=== PATIENT | male | born 1950 | race Caucasian/White ===

== ENCOUNTER 2016-04-03 09:50 | Emergency (ER) ==
[2016-04-03] MEDS ORDERED: NITROSTAT SL STA ×2 (09:57→10:08)
[2016-04-03] MEDS ORDERED: SODIUM CHLORIDE 1,000 ML IV STA (09:57)
[2016-04-03] MEDS ORDERED: ASPIRIN CHEWABLE PO STA (09:57)
[2016-04-03 10:02] VITALS: BP 169/113; TEMP 97.1; BMI 34.0
--- NOTE | 2016-04-03 10:04 | ED.PDOC ---
General ED Provider: Dr. REGI AMADOR-ER Chief Complaint: Chest Pain Stated Complaint: im hurting Time Seen by Physician: 09:55 Mode of Arrival: Wheelchair Information Source: Patient, Family Exam Limitations: No limitations Nursing and Triage Documentation Reviewed and Agree: Yes Cardiovascular Complaint Exam - Chest Pain Complaint/Exam Onset: Sudden Duration: 2hrs Symptoms Are: Still present Timing: Constant Initial Severity: Moderate Current Severity: Moderate Location: Reports: Discrete Pain Radiates: Reports: None Aggravating: Reports: None Alleviating: Reports: Oxygen Associated Signs and Symptoms: Denies: Diaphoresis, Nausea, Vomiting, Fever, Palpitations, Cough, Hemoptysis, Back pain, Abdominal pain, Dizziness, Short of air, Calf pain, Calf swelling Related Surgical History: Reports: None History of Healthcare-Acquired Pneumonia: Reports: No TAD Risk Factors: Reports: None Pulmonary Embolism Risk Factors: Reports: None Prior Care for this Complaint: No Recent Stress Test: No Recent Echo/LV Function: No JVD Present: No Subcutaneous Emphysema Present: No Diminshed Breath Sounds: No Reproducible Chest Wall Pain: No Bilateral Pulses Present: Yes Unequal Pulses Noted: No Differential Diagnoses: Acute OR Quality Indicators For Acute OR or Cardiac Chest Pain: EKG in 10min. Quality Indicator For Non-Traumatic Chest Pain/Syncope: EKG Performed Review of Systems - Review Of Systems Constitutional: Reports: No symptoms Eyes: Reports: No symptoms Ears, Nose, Mouth, Throat: Reports: No symptoms Respiratory: Reports: No symptoms Cardiac: Reports: Chest pain GI: Reports: No symptoms : Reports: No symptoms Musculoskeletal: Reports: No symptoms Skin: Reports: No symptoms Neurological: Reports: No symptoms Endocrine: Reports: No symptoms Hematologic/Lymphatic: Reports: No symptoms All Other Systems: Reviewed and Negative Past Medical History - Past Medical History Endocrine: Reports: Unknown Cardiovascular: Reports: Unknown Respiratory: Reports: Unknown Hematological: Reports: Unknown Gastrointestinal: Reports: Unknown Genitourinary: Reports: Unknown Neuro/Psych: Reports: Unknown Musculoskeletal: Reports: Unknown Cancer: Reports: Unknown - Surgical History General Surgical History: Reports: Unknown - Family History Family History: Reports: Unknown - Social History Smoking Status: Current every day smoker, Heavy tobacco smoker Hx Substance Use: No Alcohol Screening: None Lives: With family Physical Exam - Physical Exam Appearance: Well-appearing, No pain distress, Well-nourished Pain Distress: Moderate Eyes: TATYANA, EOMI, Conjunctiva clear ENT: Ears normal, Nose normal, Oropharynx normal Neck: Supple Respiratory: Airway patent, Breath sounds clear, Breath sounds equal, Respirations nonlabored Cardiovascular: RRR, Pulses normal, No rub, No murmur GI/: Soft, Nontender, No masses, Bowel sounds normal, No Organomegaly Musculoskeletal: Normal strength, ROM intact, No edema, No calf tenderness Skin: Warm Neurological: Sensation intact, Motor intact, Reflexes intact, Cranial nerves intact, Alert, Oriented Psychiatric: Affect appropriate, Mood appropriate Interpretation - EKG Interpretation Time of EKG #1: 10:04 Rate: Normal Rhythm: Sinus [place]: NL ST Segment: Other (st seg elevations) Re-Evaluation - Re-Evaluation Time of Re-Evaluation: 10:04 Status: Improved Vital Signs Stable: Yes Pain Level: 1 Appearance: NAD Lungs: Clear Skin: Warm and Dry Neuro: Alert and Oriented X3 CV: RRR Physician Notification - Case Discussed Physician Notified: dr beatty psychiatricosiel er Time of Notification: 10:04 Critical Care Note - Critical Care Note Total Time (mins): 15 Course - Course Orders, Labs, Meds: Orders Category Date Time Status EKG-(ED ONLY) Stat CARDIO 04/03/16 09:57 Ordered TRANSFER TO OUTSIDE FACILITY .TO [facility] 04/03/16 10:05 Ordered ([place], [place]) WRITE TRANSFER/SBAR NOTE ONCE CARE 04/03/16 10:05 Ordered DISCHARGE ASSESSMENT ONCE DISCHARGE 04/03/16 10:05 Ordered WRITE DISCHARGE NOTE ONCE DISCHARGE 04/03/16 10:05 Ordered Atg Java Developer [ED LACQUER SHADER APPLIED] .ONCE EMERGENCY 04/03/16 09:58 Active ED IV/MEDIPORT/POWERPORT .ONCE EMERGENCY 04/03/16 09:57 Active AMYLASE Stat LAB 04/03/16 09:56 Ordered CBC W/ AUTO DIFF Stat LAB 04/03/16 09:56 Ordered COMPREHENSIVE METABOLIC PANEL Stat LAB 04/03/16 09:56 Ordered CREATINE KINASE Stat LAB 04/03/16 09:56 Ordered LIPASE Stat LAB 04/03/16 09:56 Ordered TROPONIN I Stat LAB 04/03/16 09:56 Ordered 0.9 % Sodium Chloride [Saline Flush] MEDS 04/03/16 09:57 Active 1 syr IVF PRN PRN Aspirin [Aspirin Chewable] MEDS 04/03/16 09:57 Discontinued 324 mg PO ONCE STA Nitroglycerin [Nitrostat] MEDS 04/03/16 09:57 Discontinued 0.4 mg SL ONCE STA Sodium Chloride 0.9% [Sodium Chloride] 1,000 ml MEDS 04/03/16 09:57 Active IV 100 mls/hr Medications Generic Name Dose Route Start Last Admin Trade Name Freq PRN Reason Stop Dose Admin Sodium Chloride 1,000 mls @ 100 mls/hr 04/03/16 09:57 Sodium Chloride IV 04/03/16 19:56 .Q10H STA Sodium Chloride 1 syr 04/03/16 09:57 Saline Flush IVF PRN PRN To flush IV Discontinued Medications Generic Name Dose Route Start Last Admin Trade Name Freq PRN Reason Stop Dose Admin Aspirin 324 mg 04/03/16 09:57 Aspirin Chewable PO 04/03/16 09:58 ONCE STA Nitroglycerin 0.4 mg 04/03/16 09:57 Nitrostat SL 04/03/16 09:58 ONCE STA Vital Signs: Temp Pulse Resp BP Pulse Ox 04/03/16 09:51 97.1 F L 68 20 169/113 H 98 NICHOL Risk Score NICHOL Risk Score: Risk Score Odds of by 30D 0 0.1 (0.1-0.2) 1 0.3 (0.2-0.3) 2 0.4 (0.3-0.5) 3 0.7 (0.6-0.9) 4 1.2 (1.0-1.5) 5 2.2 (1.9-2.6) 6 3.0 (2.5-3.6) 7 4.8 (3.8-6.1) Departure - Departure Time of Disposition: 10:04 Disposition: TSF SHORT-TRM HOSP Discharge Problem: Chest pain Myocardial infarction Qualifiers: Myocardial infarction ST status: ST elevation myocardial infarction Involved coronary artery: unspecified coronary artery Qualifier Code: (I21.3) ST elevation (STEMI) myocardial infarction of unspecified site Instructions: Chest Pain (ED) Condition: Good Pt referred to PMD for follow-up: Yes Transfer Form Completed: Yes Disposition Discussed With: Patient, Family
[2016-04-03 10:08] LABS: BASOPHILS # (AUTO) 0.1 K/uL (0-0.2); BASOPHILS % (AUTO) 0.8 % (0.0-3.0); EOSINOPHILS # (AUTO) 0.6 K/ul (0.0-0.7); EOSINOPHILS % (AUTO) 4.4 % (0.0-7.0); HEMOGLOBIN 15.5 g/dl (14.0-18.0); IMMATURE GRANULOCYTE % (AUTO) 0.4 % (0.0-5.0); LYMPHOCYTES # (AUTO) 2.9 K/uL (0.60-3.4); LYMPHOCYTES % (AUTO) 21.5 (10.0-50.0); MEAN CORPUSCULAR HEMOGLOBIN 30.7 pg (27.0-31.0); MEAN CORPUSCULAR VOLUME 93.1 fl (80.0-94.0); MONOCYTES # (AUTO) 0.6 K/uL (0.4-2.0); MONOCYTES % (AUTO) 4.4 (0-10); NEUTROPHILS # (AUTO) 9.1 K/ul (2.0-6.9); NEUTROPHILS % (AUTO) 68.5; PLATELET COUNT 226 10^3/uL (140-440); RED BLOOD COUNT 5.05 10^6/ul (4.70-6.10); WHITE BLOOD COUNT 13.28 K/ul (4.2-10.2)
[2016-04-03 10:43] LABS: ALBUMIN 3.6 g/dL (3.4-5.0); ALBUMIN/GLOBULIN RATIO 1.06; ANION GAP 16.6; BILIRUBIN,TOTAL 0.28 mg/dL (0.00-1.20); BUN/CREATININE RATIO 14.56; CALCIUM 8.8 mg/dL (8.2-10.2); CREATININE 1.03 mg/dL (0.60-1.10); POTASSIUM 4.6 mmol/L (3.5-5.1); TROPONIN I 0.311 ng/ml (0.0000-0.4000)
[2016-04-03 10:49] LABS: CREATINE KINASE MB 4.1 ng/ml (0.0-3.6)
--- NOTE | 2016-04-03 15:35 | DI ---
EXAM: Single frontal view of the chest HISTORY: Chest pain. COMPARISON: 12/01/[address] chest 10/18/2011 FINDINGS: Cardiomediastinal silhouette is normal. There is no pneumothorax or pleural effusion. Th ere is no consolidation, nodule or mass. There are few calcified left hilar lymph nodes present. T he osseous structures are unremarkable. The left perihilar density identified on CT in 2012 is not identified on chest x-ray. IMPRESSION: No acute cardiopulmonary process.
== END 2016-04-03 10:30 | disposition short-term general hospital (02) ==
LOC: ED 09:50
DX: I21.3 ST elevation (STEMI) myocardial infarction of unspecified site (principal); F17.210 Nicotine dependence, cigarettes, uncomplicated
CPT/HCPCS: 36415; 80053; 82150; 82550; 82553; 83690; 84484; 85025; 93005; 93010; 99285

== ENCOUNTER 2016-04-03 10:27 | Outpatient (CLI) ==
[2016-04-03 10:02] VITALS: BMI 34.0
== END 2016-04-03 10:28 | disposition home or self-care (01) ==
LOC: AMBL 10:27
PROVIDERS: ATTEND Family Medicine
DX: R07.9 Chest pain, unspecified (principal); R94.31 Abnormal electrocardiogram [ECG] [EKG]

== ENCOUNTER 2019-05-24 09:26 | Observation (INO) ==
[2019-05-24 09:31] VITALS: BMI 29.5
[2019-05-24] MEDS ORDERED: SOLU-MEDROL 125 MG IVP STA (09:54)
[2019-05-24] MEDS ORDERED: DUONEB NEB STA (09:54)
--- NOTE | 2019-05-24 10:00 | ED.PDOC ---
General ED Provider: Dr. SWATHI ELMORE MD Chief Complaint: Shortness of Air Stated Complaint: mild to mod short of breath for one week, +cough, not on home oxygen, no fever, hx copd and mi w/ stent, no dm Time Seen by Physician: 09:58 Mode of Arrival: Walk-In Information Source: Patient Nursing and Triage Documentation Reviewed and Agree: Yes Does patient meet sepsis criteria?: No System Inflammatory Response Syndrome: Not Applicable Sepsis Protocol: For patient's 13 years and over: Temp is 96.8 and below OR 101 and greater Pulse >90 BPM Resp >20/minute Acutely Altered Mental Status Are patient's symptoms suggestive of a new infection, such as: -Pneumonia -Skin, Soft Tissue -Endocarditis -UTI -Bone, Joint Infection -Implantable Device -Acute Abdominal Infection -Wound Infection -Meningitis -Blood Stream Catheter Infection -Unknown Respiratory Complaint Exam Shortness of Air Complaint/Exam Onset/Duration: one week Symptoms Are: Still present Timing: Constant Initial Severity: Moderate Current Severity: Moderate Character: Reports Dyspnea at rest Aggravating: Reports Deep breaths Alleviating: Reports None Associated Signs and Symptoms: Reports Cough and Wheezing Related History: Reports Similar episode Review of Systems Review Of Systems Constitutional: Reports Malaise; Denies Fever Eyes: Denies Vision change Ears, Nose, Mouth, Throat: Denies Throat pain Respiratory: Reports Cough, Short of air and Wheezing; Denies Stridor Cardiac: Denies Chest pain GI: Denies Abdominal pain Musculoskeletal: Denies Back pain Skin: Denies Rash and Cyanosis Neurological: Denies Cognitive dysfunction All Other Systems: Other Physical Exam Physical Exam Appearance: Reports Well-appearing Ill-appearing: None Pain Distress: None Eyes: Reports EOMI ENT: Reports Oropharynx normal Neck: Supple Respiratory: Reports Airway patent and Wheezes Cardiovascular: Reports RRR GI/: Reports Nontender Musculoskeletal: Reports ROM intact Skin: Reports Warm and Dry Neurological: Reports Sensation intact Psychiatric: Reports Affect appropriate Interpretation Radiology Interpretation Radiology Interpretation By: Radiologist Radiology Results: No acute changes Exam Interpreted: CXR Radiology Interpretation By: Radiologist Exam Interpreted: CT Scan Xray Comments: no PE, possible left infil EKG Interpretation Time of EKG #1: 12:38 Rate: Normal Rhythm: Sinus Interpretation: no stemi Re-Evaluation Re-Evaluation Time of Re-Evaluation: 12:38 Status: Improved Vital Signs Stable: Yes Appearance: NAD Skin: Warm and Dry Neuro: Alert and Oriented X3 CV: RRR Additional Comments: pH 7.41/39/64 on RA, troponin normal range, wbc 13.1, lactate and flu screen normal range Critical Care Note Critical Care Note Total Time (mins): 0 Course Course Hematology/Chemistry: 05/24/19 10:09 05/24/19 10:09 Orders, Labs, Meds: Lab Review 05/24/19 05/24/19 05/24/19 09:54 10:09 10:09 WBC 13.17 H RBC 4.65 L Hgb 14.3 Hct 42.8 MCV 92.0 MCH 30.8 MCHC 33.4 RDW Coeff of Nancy 13.2 Plt Count 169 Immature Gran % (Auto) 0.5 Neut % (Auto) 79.6 H Lymph % (Auto) 11.8 [place] % (Auto) 7.3 Eos % (Auto) 0.5 Baso % (Auto) 0.3 Immature Gran # (Auto) 0.1 Neut # (Auto) 10.5 H Lymph # (Auto) 1.6 [place] # (Auto) 1.0 Eos # (Auto) 0.1 Baso # (Auto) 0.0 D-Dimer (Manual) Puncture Site L rad O2 Saturation 92.0 L ABG pH 7.411 ABG pCO2 39.8 ABG pO2 64.0 L ABG HCO3 25.3 ABG Total CO2 26 ABG Base Excess 1 Ye Test + O2 Delivery Device Ra FiO2 % 21.0 Sodium 136.4 Potassium 4.19 Chloride 100.3 Carbon Dioxide 27.9 Anion Gap 12.39 BUN 7.4 L Creatinine 0.78 Estimated GFR (MDRD) 99.00 BUN/Creatinine Ratio 9.48 Glucose 126.4 H Lactic Acid Calcium 8.85 Total Bilirubin 1.04 AST 35.2 ALT 23.5 Alkaline Phosphatase 121.8 H Troponin I < 0.012 Total Protein 7.46 Albumin 4.05 Globulin 3.41 Albumin/Globulin Ratio 1.18 Influ A Molecular Assay Influ B Molecular Assay 05/24/19 05/24/19 05/24/19 10:09 10:09 10:15 WBC RBC Hgb Hct MCV MCH MCHC RDW Coeff of Nancy Plt Count Immature Gran % (Auto) Neut % (Auto) Lymph % (Auto) [place] % (Auto) Eos % (Auto) Baso % (Auto) Immature Gran # (Auto) Neut # (Auto) Lymph # (Auto) [place] # (Auto) Eos # (Auto) Baso # (Auto) D-Dimer (Manual) 776.49 Puncture Site O2 Saturation ABG pH ABG pCO2 ABG pO2 ABG HCO3 ABG Total CO2 ABG Base Excess Ye Test O2 Delivery Device FiO2 % Sodium Potassium Chloride Carbon Dioxide Anion Gap BUN Creatinine Estimated GFR (MDRD) BUN/Creatinine Ratio Glucose Lactic Acid 1.03 Calcium Total Bilirubin AST ALT Alkaline Phosphatase Troponin I Total Protein Albumin Globulin Albumin/Globulin Ratio Influ A Molecular Assay Negative by naat Influ B Molecular Assay Negative by naat Orders Category Date Time Status ADMIT OBSERVATION [PLACE PATIENT OBSERVATION] .TO ADMISSION 05/24/19 12:32 Active MEDSURG (MONITORED BED) ABG DRAW REQUEST Stat CARDIO 05/24/19 09:55 Completed EKG-(ED ONLY) Stat CARDIO 05/24/19 10:24 Completed NEBULIZER TREATMENT Routine CARDIO 05/24/19 12:42 Active NEBULIZER TREATMENT Stat CARDIO 05/24/19 09:54 Completed OXYGEN Routine CARDIO 05/24/19 12:41 Active ACTIVITY .Complete BR CARE 05/24/19 12:40 Active INTAKE & OUTPUT Q8HR CARE 05/24/19 12:41 Active NPO REMINDER: IMAGING ONCE CARE 05/24/19 11:12 Completed TELEMETRY MONITORING TELE CARE 05/24/19 12:34 Active VITAL SIGNS Q8HR CARE 05/24/19 12:41 Active CARDIAC DIET DIETARY 05/24/19 Lunch Ordered ED APPLY O2 .ONCE EMERGENCY 05/24/19 09:54 Active ABG Stat LAB 05/24/19 09:54 Completed BLOOD CULTURE Stat LAB 05/24/19 10:54 Received CBC W/ AUTO DIFF Stat LAB 05/24/19 10:09 Completed COMPREHENSIVE METABOLIC PANEL Stat LAB 05/24/19 10:09 Completed D-DIMER Stat LAB 05/24/19 10:09 Completed FLU A/B MOLECULAR Stat LAB 05/24/19 10:15 Completed LACTIC ACID Stat LAB 05/24/19 10:09 Completed TROPONIN I Stat LAB 05/24/19 10:09 Completed Acetaminophen [Tylenol] MEDS 05/24/19 12:40 Active 650 mg PO Q4H PRN Ipratropium/Albuterol Neb [Duoneb] MEDS 05/24/19 09:54 Discontinued 3 ml NEB ONCE STA Ipratropium/Albuterol Neb [Duoneb] MEDS 05/24/19 18:00 Active 3 ml NEB RTQ6H Levofloxacin/D5w [Levaquin 750 mg/150 ml D5w] MEDS 05/25/19 09:00 Active 750 mg in 150 ml IV DAILY Levofloxacin/D5w [Levaquin 750 mg/150 ml D5w] MEDS 05/24/19 12:25 Discontinued 750 mg in 150 ml IV ONCE Methylprednisolone Sod Succ/Pf [Solu-Medrol 125 mg] MEDS 05/24/19 12:10 Discontinued 125 mg .ROUTE .STK-MED ONE Methylprednisolone Sod Succ/Pf [Solu-Medrol 125 mg] MEDS 05/24/19 09:54 Discontinued 125 mg IVP ONCE STA RESUSCITATION STATUS Routine OTHERS 05/24/19 12:40 Completed CHEST, 1V AP ONLY Stat RADS 05/24/19 09:[address] CHEST PE PROTOCOL Stat RADS 05/24/19 11:12 Completed Medications Generic Name Dose Route Start Last Admin Trade Name Freq PRN Reason Stop Dose Admin Acetaminophen 650 mg 05/24/19 12:40 Tylenol PO Q4H PRN Mild Pain Albuterol/Ipratropium 3 ml 05/24/19 18:00 Duoneb NEB RTQ6H HAROLDO Levofloxacin/Dextrose 750 mg in 150 mls @ 100 mls/hr 05/25/19 09:00 Levaquin 750 Mg/150 Ml D5w IV 05/28/19 08:59 DAILY HAROLDO Discontinued Medications Generic Name Dose Route Start Last Admin Trade Name Freq PRN Reason Stop Dose Admin Albuterol/Ipratropium 3 ml 05/24/19 09:54 05/24/19 10:21 Duoneb NEB 05/24/19 09:55 3 ml ONCE STA Administration Levofloxacin/Dextrose 750 mg in 150 mls @ 100 mls/hr 05/24/19 12:25 05/24/19 12:46 Levaquin 750 Mg/150 Ml D5w IV 05/24/19 13:54 100 mls/hr ONCE STA Administration Methylprednisolone Sodium Succinate 125 mg 05/24/19 09:54 05/24/19 12:15 Solu-Medrol 125 Mg IVP 05/24/19 09:55 125 mg ONCE STA Administration Vital Signs: Temp Pulse Resp BP Pulse Ox 05/24/19 09:26 98.1 F 79 19 121/75 92 L Discharge Plan Discharge Patient Disposition: PLACED OBSERVATION Discharge Problem: Pneumonia Qualifiers: Pneumonia type: due to unspecified organism Laterality: left Lung location: unspecified part of lung Qualified Code(s): J18.9 - Pneumonia, unspecified organism ED Provider: SWATHI ELMORE Condition: Stable Discharge Date/Time: 05/24/19 13:56
[2019-05-24 10:15] LABS: HEMATOCRIT 42.8 % (42.0-52.0)
--- NOTE | 2019-05-24 10:45 | DI ---
EXAM: CHEST FRONTAL VIEW HISTORY: Shortness of breath. COMPARISON: 04/03/2016 FINDINGS: Heart size and mediastinum remain within normal limits. Lungs are free of infiltrate. No consolidation or pleural fluid. There is no pneumothorax or acute bony finding. IMPRESSION: No acute cardiopulmonary process.
[2019-05-24] MEDS ORDERED: SOLU-MEDROL 125 MG ONE (12:10)
--- NOTE | 2019-05-24 12:23 | CT ---
EXAM: CTA CHEST HISTORY: Elevated D-dimer TECHNIQUE: CTA chest with intravenous contrast. PE protocol. Multiplanar images were provided with 3-D reconstructions. COMPARISON: 10/18/2011 FINDINGS: No pulmonary arterial filling defect is seen. There is atherosclerotic disease including at the brenda nary artery levels. Heart size is normal. Trace pericardial effusion. There are a few subcarinal l ymph nodes which are nonspecific although mildly prominent. The lungs reveal mild apical pulmonary emphysema. Redemonstration of a band-like focus of consolidat ion extending from the left hilum into the upper lobe laterally without a few coarse calcifications a t its base and some spiculation. Since the 2012 exam there has been only slight change in this band- like finding with it being slightly thicker band and showing slightly greater spiculation. There are a few small bilateral pulmonary nodules which are grossly stable. Largest at 5.2 mm in the right lo wer lobe. There is no central vascular congestion, pneumothorax or pleural fluid. The bones reveal osteophytic spurring of the spine. IMPRESSION: 1. No PE. 2. Pulmonary emphysema. 3. Band-like focus of thickening extending from the left hilum and also scattered small bilateral pu lmonary nodules. The nodules are stable and the band-like focus only slightly changed as described. This when compared to 10/18/2011. These could be postinflammatory and fibrotic in nature. For the larger band like left-sided focus cannot exclude a component of pneumonia or neoplasia completely. I f indicated, periodic follow-up imaging can be considered. 4. Atherosclerosis. 5. Nonspecific mediastinal lymph nodes.
[2019-05-24] MEDS ORDERED: LEVAQUIN 750 MG/150 ML D5W 750 MG/150 ML BAG IV STA (12:25)
[2019-05-24] MEDS ORDERED: TYLENOL PO PRN (12:40)
--- NOTE | 2019-05-24 14:21 | PCM ---
Chief Complaint Chief Complaint: "Shortness of Breath" History of Present Illness History of Present Illness: Kendrick Contreras is a 69 yo male patient from a local [facility] who presented to [facility] ER 05/24/2019 09:26 c/o's of gradually severe worsening SOB for one week. There is associated cough w/ thick light brar sputum production this AM, mild weakness, fatigue, wheezing, "a little bit" of pain w/ breathing, and 2 pillow orthopnea that has progressed to recliner orthopnea the last 2 night. He denies f/c, sweats, headaches, dizziness, syncope, URI sx's except slight clear rhinitis (seasonal allergies), ST, CP, palpitations, myalgias, or arthralgias. of mild to mod short of breath for one week. See ROS. He used his rescue inhaler 2 this AM and says he is taking home meds as ordered; no skipped doses of medications. He denies recent steroid therapy or home oxygen use. No other home treatments were tried. He denies recent travel, illness, or known ill contacts. He is a living independently alone in his apartment. He does smoke 1/2PPD X 44 yrs and is considering smoking cessation. PMH is positive for COPD, CAD w/ [place] 04/03/2016 resulting in 1 stent , HLD, and Bilateral Knee Osteoarthritis. Admission labs abnormalities revealed : CBC WBC 13.17, RBC 4.65L, Neut% 79.6H, Neut# 9.1H; CMP essentially normal except BUN 7.4 L, Alk Phos 121.81; Troponin N<0.012; D-Dimer 776.49; ABG's Sat 92L, pH 7.41, pCO2 39.8, pO2 64.0, HCO3 25.3, Total CO2 26, Base Excess 1. CXR was negative w/ CT Lung w/ contrast done due to elevated D-Dimer. CT Lung noted no PE; Pulmonary emphysema; Band-like focus of thickening extending from the left hilum and also scattered small bilateral pulmonary nodules. The nodules are stable and the band-like focus only slightly changed as described. This when compared to 10/18/2011. These could be postinflammatory and fibrotic in nature. For the larger band like left-sided focus cannot exclude a component of pneumonia or neoplasia completely. If indicated, periodic follow-up imaging can be considered; Atherosclerosis; nonspecific mediastinal lymph nodes. Patient was given neb treatments, Methylprednisolone 125mg IVP, and Levaquin 750mg IV after blood cultures obtained. Patient was then admitted as observation status for Pneumonia for IV steroid therapy, Nebulizer treatments and IV Levaquin therapy for his severe hypoxia, abnormal CT lung, and elevated WBC's. Review of Systems Constitutional: Reports weakness (mild), fatigue and loss of appetite; Denies fever, chills and sweats Eyes: Denies blurred vision, double-vision, discharge, itching, pain, redness and photophobia Ears: Denies pain, bleeding, drainage, ringing and hearing loss Nose: Reports discharge (clear) and other (seasonal allergies at times); Denies bleeding and congestion Throat: Denies pain, swelling and voice change Mouth: Denies bleeding, pain and swelling Respiratory: Reports cough (worsening cough this AM w/ cloudy brar thick sputum), shortness of air, wheeze and pain with breathing ("a little bit"); Denies hemoptysis Cardiovascular: Reports orthopnea (usually 2 pillows but recliner the last 2 nights.); Denies chest pain, left arm pain, diaphoresis, PND, edema, palpitations and syncope Gastrointestinal: Reports constipation (Last BM this AM was normal.); Denies abdominal pain, nausea, vomiting, diarrhea, melena, hematemesis, hematochezia and dysphagia Genitourinary: Denies dysuria, hematuria, frequency, incontinence and flank pain Neurological: Reports numbness (ocassional N/T tips of fingers L hand s/p cardiac stent placement) and tremor (occasional); Denies headache, dizziness, seizure, weakness, speech difficulty, problems with walking and fainting Musculoskeletal: Reports pain (bilateral knee pain w/ arthritis) and swelling in joints (occasional slight bilateral knee swelling.) Skin: Reports bruising (few bruises w/ plavix on forearms.); Denies rash, pruritus, lacerations and wounds Hematology: Reports easy bruising and easy bleeding; Denies swollen glands Endocrine: Reports cold intolerance and other; Denies weight changes, heat intolerance, excessive thirst, excessive hunger and polyuria Psychiatric: Reports sleeplessness (sometimes w/ BLE pain that he walks out and then sleeps); Denies depression, anxiety, hopelessness, suicidal and hallucinations Habits: Reports tobacco use (1/2 PPD for 44 yrs.); Denies substance use and alcohol use Allergies Allergies Allergy/AdvReac Type Severity Reaction Status Date / Time morphine AdvReac Severe itching Verified 05/24/19 17:09 PFSH Medical History (Updated 05/24/19 @ 18:48 by SAM MORRISON) CAD (coronary artery disease) (Acute) COPD (chronic obstructive pulmonary disease) (Acute) History of [place] (myocardial infarction) (Acute) Hyperlipidemia (Acute) Hypertension (Acute) Osteoarthritis (Acute) Surgical History (Updated 05/24/19 @ 17:12 by SAM MORRISON) Presence of stent in coronary artery in patient with coronary artery disease (Acute) Family History (Updated 05/24/19 @ 17:13 by SAM MORRISON) Mother Colon cancer BROTHER Diabetes FATHER Alzheimer's dementia Social History (Updated 05/24/19 @ 17:17 by SAM MORRISON) Smoking and tobacco status: Current every day smoker Tobacco: How many years used: 44 Quit status: considering quitting Second hand smoke exposure: No Alcohol intake: current Alcohol intake frequency: does not drink Substance use type: does not use Anyi/samaritan: [employer] Adopted: No Household members: none Housing: apartment Marital status: W / Lives independently: Yes Number of children: 3 Number of grandchildren: 9 Highest education level completed: 10th grade service: No Current occupational status: retired Previous occupational history: retired personal care worker Do you think of yourself as: straight/heterosexual Current gender identity: male Medications Medications: Medications Generic Name Dose Route Start Last Admin Trade Name Freq PRN Reason Stop Dose Admin Acetaminophen 650 mg 05/24/19 12:40 Tylenol PO Q4H PRN Mild Pain Albuterol/Ipratropium 3 ml 05/24/19 18:00 Duoneb NEB RTQ6H HAROLDO Levofloxacin/Dextrose 750 mg in 150 mls @ 100 mls/hr 05/25/19 09:00 Levaquin 750 Mg/150 Ml D5w IV 05/28/19 08:59 DAILY HAROLDO Body Composition Height: 5 ft 9 in Weight: 200 lb Body Mass Index (BMI): 29.5 Vital Signs Temperature: 98.1 F Pulse Rate: 79 Respiratory Rate: 19 Blood Pressure: 121/75 O2 Sat by Pulse Oximetry: 92 Physical Examination Appearance: Reports Ill-appearing and Well-nourished Ill-appearing: Severe Pain Distress: Severe (Sitting up in bed w/ arms bracing behind him for inspiration. Denies pain--has respiratory distress. ) Eyes: Reports TATYANA, EOMI and Conjunctiva clear ENT: Reports Ears normal, Nose normal and Oropharynx normal; Denies TMs Oc[place], Rhinorrhea, Epistaxis and Erythema Neck: Supple Respiratory: Reports Airway patent, Breath sounds equal, Breath sounds diminished, Wheezes (globally) and Retractions (mild); Denies Breath sounds clear, Respirations nonlabored, Airway obstructed, Crackles and Rhonchi Cardiovascular: Reports RRR, Pulses normal, No rub and No murmur; Denies Irregular rhythm and Tachycardia (SR rate 82 on telemetry) GI/: Reports Soft, Nontender, No masses, Bowel sounds normal and No Organo megaly Musculoskeletal: Reports Normal strength, ROM intact, No edema and No calf tenderness Skin: Reports Warm, Dry and Pale; Denies Diaphoretic and Cyanotic Neurological: Reports Sensation intact, Motor intact, Reflexes intact, Cranial nerves intact, Alert and Oriented Psychiatric: Reports Affect appropriate and Mood appropriate; Denies Anxious and Depressed Lab/Tests/Diagnostic Imaging Lab/Tests/Diagnostic Imaging: Lab Review 05/24/19 05/24/19 05/24/19 09:54 10:09 10:09 WBC 13.17 H RBC 4.65 L Hgb 14.3 Hct 42.8 MCV 92.0 MCH 30.8 MCHC 33.4 RDW Coeff of Nancy 13.2 Plt Count 169 Immature Gran % (Auto) 0.5 Neut % (Auto) 79.6 H Lymph % (Auto) 11.8 [place] % (Auto) 7.3 Eos % (Auto) 0.5 Baso % (Auto) 0.3 Immature Gran # (Auto) 0.1 Neut # (Auto) 10.5 H Lymph # (Auto) 1.6 [place] # (Auto) 1.0 Eos # (Auto) 0.1 Baso # (Auto) 0.0 D-Dimer (Manual) Puncture Site L rad O2 Saturation 92.0 L ABG pH 7.411 ABG pCO2 39.8 ABG pO2 64.0 L ABG HCO3 25.3 ABG Total CO2 26 ABG Base Excess 1 Ye Test + O2 Delivery Device Ra FiO2 % 21.0 Sodium 136.4 Potassium 4.19 Chloride 100.3 Carbon Dioxide 27.9 Anion Gap 12.39 BUN 7.4 L Creatinine 0.78 Estimated GFR (MDRD) 99.00 BUN/Creatinine Ratio 9.48 Glucose 126.4 H Lactic Acid Calcium 8.85 Total Bilirubin 1.04 AST 35.2 ALT 23.5 Alkaline Phosphatase 121.8 H Troponin I < 0.012 Total Protein 7.46 Albumin 4.05 Globulin 3.41 Albumin/Globulin Ratio 1.18 Influ A Molecular Assay Influ B Molecular Assay 05/24/19 05/24/19 05/24/19 10:09 10:09 10:15 WBC RBC Hgb Hct MCV MCH MCHC RDW Coeff of Nancy Plt Count Immature Gran % (Auto) Neut % (Auto) Lymph % (Auto) [place] % (Auto) Eos % (Auto) Baso % (Auto) Immature Gran # (Auto) Neut # (Auto) Lymph # (Auto) [place] # (Auto) Eos # (Auto) Baso # (Auto) D-Dimer (Manual) 776.49 Puncture Site O2 Saturation ABG pH ABG pCO2 ABG pO2 ABG HCO3 ABG Total CO2 ABG Base Excess Ye Test O2 Delivery Device FiO2 % Sodium Potassium Chloride Carbon Dioxide Anion Gap BUN Creatinine Estimated GFR (MDRD) BUN/Creatinine Ratio Glucose Lactic Acid 1.03 Calcium Total Bilirubin AST ALT Alkaline Phosphatase Troponin I Total Protein Albumin Globulin Albumin/Globulin Ratio Influ A Molecular Assay Negative by naat Influ B Molecular Assay Negative by naat 05/24/2019 CXR IMPRESSION: No acute cardiopulmonary process. 05/24/2019 CT Chest w/ IV contrast FINDINGS: No pulmonary arterial filling defect is seen. There is atherosclerotic disease including at the coronary artery levels. Heart size is normal. Trace pericardial effusion. There are a few subcarinal lymph nodes which are nonspecific although mildly prominent. The lungs reveal mild apical pulmonary emphysema. Redemonstration of a band- like focus of consolidation extending from the left hilum into the upper lobe laterally without a few coarse calcifications at its base and some spiculation. Since the 2011 exam there has been only slight change in this band-like finding with it being slightly thicker band and showing slightly greater spiculation. There are a few small bilateral pulmonary nodules which are grossly stable. Largest at 5.2 mm in the right lower lobe. There is no central vascular congestion, pneumothorax or pleural fluid. The bones reveal osteophytic spurring of the spine. IMPRESSION: 1. FINDINGS: No pulmonary arterial filling defect is seen. There is atherosclerotic disease including at the coronary artery levels. Heart size is normal. Trace pericardial effusion. There are a few subcarinal lymph nodes which are nonspecific although mildly prominent. The lungs reveal mild apical pulmonary emphysema. Redemonstration of a band- like focus of consolidation extending from the left hilum into the upper lobe laterally without a few coarse calcifications at its base and some spiculation. Since the 2011 exam there has been only slight change in this band-like finding with it being slightly thicker band and showing slightly greater spiculation. There are a few small bilateral pulmonary nodules which are grossly stable. Largest at 5.2 mm in the right lower lobe. There is no central vascular congestion, pneumothorax or pleural fluid. The bones reveal osteophytic spurring of the spine. IMPRESSION: 1. No PE. 2. Pulmonary emphysema. 3. Band-like focus of thickening extending from the left hilum and also scattered small bilateral pulmonary nodules. The nodules are stable and the band-like focus only slightly changed as described. This when compared to 10/18/2011. These could be postinflammatory and fibrotic in nature. For the larger band like left-sided focus cannot exclude a component of pneumonia or neoplasia completely. If indicated, periodic follow-up imaging can be considered. 4. Atherosclerosis. 5. Nonspecific mediastinal lymph nodes. Orders Category Date Time Status ADMIT OBSERVATION [PLACE PATIENT OBSERVATION] .TO ADMISSION 05/24/19 12:32 Active MEDSURG (MONITORED BED) ABG DRAW REQUEST Stat CARDIO 05/24/19 09:55 Completed EKG-(ED ONLY) Stat CARDIO 05/24/19 10:24 Completed NEBULIZER TREATMENT Routine CARDIO 05/24/19 12:42 Active NEBULIZER TREATMENT Stat CARDIO 05/24/19 09:54 Completed OXYGEN Routine CARDIO 05/24/19 12:41 Active ACTIVITY .Complete BR CARE 05/24/19 12:40 Active INTAKE & OUTPUT Q8HR CARE 05/24/19 12:41 Active NPO REMINDER: IMAGING ONCE CARE 05/24/19 11:12 Completed TELEMETRY MONITORING TELE CARE 05/24/19 12:34 Active VITAL SIGNS Q8HR CARE 05/24/19 12:41 Active CARDIAC DIET DIETARY 05/24/19 Lunch Ordered ED APPLY O2 .ONCE EMERGENCY 05/24/19 09:54 Active ABG Stat LAB 05/24/19 09:54 Completed BLOOD CULTURE Stat LAB 05/24/19 10:54 Received CBC W/ AUTO DIFF Stat LAB 05/24/19 10:09 Completed COMPREHENSIVE METABOLIC PANEL Stat LAB 05/24/19 10:09 Completed D-DIMER Stat LAB 05/24/19 10:09 Completed FLU A/B MOLECULAR Stat LAB 05/24/19 10:15 Completed LACTIC ACID Stat LAB 05/24/19 10:09 Completed TROPONIN I Stat LAB 05/24/19 10:09 Completed Acetaminophen [Tylenol] MEDS 05/24/19 12:40 Active 650 mg PO Q4H PRN Ipratropium/Albuterol Neb [Duoneb] MEDS 05/24/19 09:54 Discontinued 3 ml NEB ONCE STA Ipratropium/Albuterol Neb [Duoneb] MEDS 05/24/19 18:00 Active 3 ml NEB RTQ6H Levofloxacin/D5w [Levaquin 750 mg/150 ml D5w] MEDS 05/25/19 09:00 Active 750 mg in 150 ml IV DAILY Levofloxacin/D5w [Levaquin 750 mg/150 ml D5w] MEDS 05/24/19 12:25 Discontinued 750 mg in 150 ml IV ONCE Methylprednisolone Sod Succ/Pf [Solu-Medrol 125 mg] MEDS 05/24/19 12:10 Discontinued 125 mg .ROUTE .STK-MED ONE Methylprednisolone Sod Succ/Pf [Solu-Medrol 125 mg] MEDS 05/24/19 09:54 Discontinued 125 mg IVP ONCE STA RESUSCITATION STATUS Routine OTHERS 05/24/19 12:40 Ordered CHEST, 1V AP ONLY Stat RADS 05/24/19 09:[address] CHEST PE PROTOCOL Stat RADS 05/24/19 11:12 Completed Medications Generic Name Dose Route Start Last Admin Trade Name Freq PRN Reason Stop Dose Admin Acetaminophen 650 mg 05/24/19 12:40 Tylenol PO Q4H PRN Mild Pain Albuterol/Ipratropium 3 ml 05/24/19 18:00 Duoneb NEB RTQ6H HAROLDO Levofloxacin/Dextrose 750 mg in 150 mls @ 100 mls/hr 05/25/19 09:00 Levaquin 750 Mg/150 Ml D5w IV 05/28/19 08:59 DAILY HAROLDO Discontinued Medications Generic Name Dose Route Start Last Admin Trade Name Freq PRN Reason Stop Dose Admin Albuterol/Ipratropium 3 ml 05/24/19 09:54 05/24/19 10:21 Duoneb NEB 05/24/19 09:55 3 ml ONCE STA Administration Levofloxacin/Dextrose 750 mg in 150 mls @ 100 mls/hr 05/24/19 12:25 05/24/19 12:46 Levaquin 750 Mg/150 Ml D5w IV 05/24/19 13:54 100 mls/hr ONCE STA Administration Methylprednisolone Sodium Succinate 125 mg 05/24/19 09:54 05/24/19 12:15 Solu-Medrol 125 Mg IVP 05/24/19 09:55 125 mg ONCE STA Administration Assessment (1) Pneumonia: Status: Acute Code(s): J18.9 - Pneumonia, unspecified organism SNOMED Code(s): 384710917 Qualifiers: Laterality: left Lung location: unspecified part of lung Pneumonia type: due to unspecified organism Qualified Code(s): J18.9 - Pneumonia, unspecified organism (2) COPD exacerbation: Status: Acute Code(s): J44.1 - Chronic obstructive pulmonary disease with (acute) exacerbation SNOMED Code(s): 040379457 (3) Hypertension: Status: Acute Code(s): I10 - Essential (primary) hypertension SNOMED Code(s): 07712997 Qualifiers: Hypertension type: essential hypertension Qualified Code(s): I10 - Essential (primary) hypertension (4) Hyperlipidemia: Status: Acute Code(s): E78.5 - Hyperlipidemia, unspecified SNOMED Code(s): 05751876 Qualifiers: Hyperlipidemia type: unspecified Qualified Code(s): E78.5 - Hyperlipidemia, unspecified (5) CAD (coronary artery disease): Status: Acute Code(s): I25.10 - Atherosclerotic heart disease of [place] coronary artery without angina pectoris SNOMED Code(s): 98205912 Qualifiers: Associated angina: without angina Coronary Disease-Associated Artery/Lesion type: unspecified vessel or lesion type [place] vs. transplanted heart: [place] heart Qualified Code(s): I25.10 - Atherosclerotic heart disease of [place] coronary artery without angina pectoris Plan Plan: Pneumonia--New onset w/ exacerbation of COPD--Con't Levaquin 750mg IV Q 24 hrs; O2 per protocol; Con't Nebulizer therapy Duonebs Q 6 hrs.; IVF NS 0.9% @ 100ml/hr.; VS Q 4hrs & prn; Tylenol prn fever; bedrest; I&O; monitor labs & obs frequent checks; notify [facility] Hospitalist if any concerns; home inhalers changed to nebs as per consultation w/ pharmacy Pulmicort Q 12hrs.; Monitor labs; RT will be checking on patient frequently Exacerbation of COPD--New onset w/ moderately severe presentation starting to respond to nebs and steroids; Decrease IV methylprednisone to 80mg IVP Q 8 hrs; Albuterol neb Q 2hrs prn wheezing/dyspnea; see PNA plan. HTN--Stable; con't home meds; monitor VS. HLD--Stable; con't home meds. Heart healthy diet. CAD w/ hx [place] & Stent placement 04/03/2016--stable at present but bears watching w/ respiratory issues; con't home meds; monitor VS & labs; Heart healthy diet.
[2019-05-24] MEDS: PULMICORT 0.5 MG/2 ML NEB SCH (17:45)
[2019-05-24] MEDS: DUONEB NEB SCH ×2 (17:46→22:25)
[2019-05-24] MEDS: LOVENOX SUBCUT SCH (18:17)
[2019-05-24] MEDS ORDERED: ALBUTEROL 0.083% NEB NEB PRN (18:56)
[2019-05-24] MEDS: LIPITOR PO SCH (20:33)
[2019-05-24] MEDS: SODIUM CHLORIDE 1,000 ML IV SCH (21:00)
[2019-05-24] MEDS ORDERED: COREG PO SCH (21:00)
[2019-05-24] MEDS: SOLU-MEDROL 125 MG IVP SCH (21:46)
[2019-05-25] MEDS: DUONEB NEB SCH ×4 (05:08→23:04)
[2019-05-25] MEDS: PULMICORT 0.5 MG/2 ML NEB SCH ×2 (05:08→17:52)
[2019-05-25] MEDS: SOLU-MEDROL 125 MG IVP SCH ×3 (05:09→20:32)
--- NOTE | 2019-05-25 07:31 | PCM.PROG ---
Date Seen by Provider: 05/25/19 Time Seen by Provider: 07:09 Subjective: Patient awake and sitting up w/ HOB 75degrees. States he slept some and better than his last 2 nights at home; feels a little tired. Breathing "feels a little better" from yesterday/admission. Still has wheezes, chest tightness improving, recliner orthopnea, and occasional barky cough w/ no sputum production at present. Denies f/c, hemoptysis, severe SOB, CP, palpitations, anxiety, tremors, abdominal pain, N/V, myalgias, or arthralgias. Keeping his O2 on per N/C. Patient notes Domenica Casas APRN, of [facility] is his PCP. Objective: Vitals: T=97.6 F, P=66, R=18, CI=301/77, SPO2=93 HEENT: Eyes-no redness, swelling or d/c. Ears: Hearing--slightly [place] w/o hearing aids. Pharynx: w/o injection, cobblestoning, lesions or PND. No dysphagia. Neck: Supple; NT; No lymphadenopathy Lungs: Diminished breath sounds bilaterally w/ tight inspiratory/expiratory wheezes. No crackles or rales. Tight [employer] cough on exam. No retractions. Respirations slightly labored and regular. O2 sat 93% on 2L/NC CVS: RRR; No murmurs or gallops; PPP 2+/4+ and =; Telemetry NSR rate 66; No edema. No cyanosis; NBB Abdomen: Soft, NT, no rebound tenderness or guarding, no organomegaly or masses. DWIGHT/SO present. Extremities: CHILDRESS well w/ symmetry. Good strength all extremities. No edema. No muscular tenderness, erythema, or abnormalities X4 extremities. Neurological: A/O X4. Cooperative and pleasant. Good eye contact. Normal gait when up w/ assistance. Speech clear. Skin: Dry & intact. No rashes or lesions noted. Lab/Tests/Diagnostic Imaging: [] (1) Pneumonia: Status: Acute Code(s): J18.9 - Pneumonia, unspecified organism SNOMED Code(s): 902317355 (2) COPD exacerbation: Status: Acute Code(s): J44.1 - Chronic obstructive pulmonary disease with (acute) exacerbation SNOMED Code(s): 176627188 (3) Hyperglycemia, drug-induced: Status: Acute Code(s): R73.9 - Hyperglycemia, unspecified; T50.905A - Adverse effect of unspecified drugs, medicaments and biological substances, initial encounter SNOMED Code(s): 245404204 (4) Hypertension: Status: Acute Code(s): I10 - Essential (primary) hypertension SNOMED Code(s): 15493482 (5) Hyperlipidemia: Status: Acute Code(s): E78.5 - Hyperlipidemia, unspecified SNOMED Code(s): 47952425 (6) CAD (coronary artery disease): Status: Acute Code(s): I25.10 - Atherosclerotic heart disease of [place] coronary artery without angina pectoris SNOMED Code(s): 11095644 (7) Tobacco abuse: Status: Acute Code(s): Z72.0 - Tobacco use SNOMED Code(s): 29026420 (8) Tobacco abuse counseling: Status: Acute Code(s): Z71.6 - Tobacco abuse counseling SNOMED Code(s): 505899530 Plan: Pneumonia--New onset w/ exacerbation of COPD w/ only slight improvement in last 22 hrs. AM Labs note some improvement w/ WBC down 12.6 despite steroid tx; other CBC abn H/H 12.8/38.6 w/ IVF hydration, Neut% up 87.9H, Lymph% 9.7L, Neut# up 4.1H, [place]# down 0.3L; CMP essentially normal except for steroid increase in fasting glucose 182.8.--Con't Levaquin 750mg IV Q 24 hrs; O2 per protocol; Con't Nebulizer therapy Duonebs Q 6 hrs.and Pulmicort neb Q 12 hrs; IVF NS 0.9% @ 100ml/hr.; VS Q 4hrs & prn; Tylenol prn fever; Increase activity--up in chair for all meals and to BRP w/ assistance & always w/ O2 use; I&O; monitor labs & obs frequent checks; notify [facility] Hospitalist if any concerns; Monitor VS and labs; if no complications in hospitalization, will need Pneumovax 23 prior to discharge. Exacerbation of COPD--New onset w/ moderately severe presentation starting to respond to nebs and steroids; Decrease IV methylprednisone to 80mg IVP Q 8 hrs; Albuterol neb Q 2hrs prn wheezing/dyspnea; see PNA plan. Hyperglycemia Drug Induced --Steroid tx--new complication d/t steroids needed for COPD. AM fasting glucose 78254.8; AC&HS FS w/ SSI as needed. HTN--Stable; con't home meds; monitor VS. HLD--Stable; con't home meds. Heart healthy diet. CAD w/ hx [place] & Stent placement 04/03/2016--stable at present but bears watching w/ respiratory issues; con't home meds; monitor VS & labs; Heart healthy diet. Tobacco Abuse w/ Counseling--Trying to improve. Counseling time 15minutes. Smokes 1/2 PPD X 44yrs. Patient A/O; counseled on complications of tobacco use and methods for cessation w/ health benefits. Pt. verbalizes understanding and would like to stop smoking using Nicotine patch. Will start Nicotine patch LD for AM application and then d/c at bedtime. Patient alerted no additional tobacco use or vaping w/ patch; he verbalizes understanding and agrees w/ plan of care/cessation. VTE Prophylaxis--No signs of DVT on admission or at present--Con't w/ observation for DVT symptoms; Lovenox while in hospital w/ patient Clopidogrel on hold(2.5 yrs since CABG w/ no thrombosis hx); NIKKI's ordered; start ambulation as tolerated w/ his respiratory issues/dyspnea.
[2019-05-25] MEDS: SODIUM CHLORIDE 1,000 ML IV SCH ×3 (07:37→19:48)
[2019-05-25 08:18] LABS: HEMATOCRIT 38.6 % (42.0-52.0)
[2019-05-25] MEDS: ZESTRIL PO SCH (08:40)
[2019-05-25] MEDS: COREG PO SCH ×2 (08:40→17:16)
[2019-05-25] MEDS: LOVENOX SUBCUT SCH (08:40)
[2019-05-25] MEDS: ASPIRIN EC PO SCH (08:40)
[2019-05-25] MEDS ORDERED: LEVAQUIN 750 MG/150 ML D5W 750 MG/150 ML BAG IV SCH (09:00)
[2019-05-25] MEDS ORDERED: PNEUMOVAX 23 SUBCUT ONE (09:23)
[2019-05-25] MEDS: NICODERM 14 MG TD SCH (10:01)
[2019-05-25] MEDS: HUMULIN R SUBCUT PRN ×2 (11:42→20:31)
[2019-05-25] MEDS: LIPITOR PO SCH (20:31)
[2019-05-26] MEDS: PULMICORT 0.5 MG/2 ML NEB SCH ×2 (05:04→18:18)
[2019-05-26] MEDS: DUONEB NEB SCH (05:04)
[2019-05-26] MEDS: SOLU-MEDROL 125 MG IVP SCH ×3 (05:22→22:06)
[2019-05-26] MEDS: HUMULIN R SUBCUT PRN ×3 (06:08→20:43)
[2019-05-26] MEDS: SODIUM CHLORIDE 1,000 ML IV SCH ×4 (06:17→18:54)
[2019-05-26] MEDS ORDERED: SODIUM CHLORIDE 500 ML IV STA ×2 (07:21→13:30)
--- NOTE | 2019-05-26 07:43 | PCM.PROG ---
Date Seen by Provider: 05/26/19 Time Seen by Provider: 07:10 Subjective: Patient sitting w/ HOB 70 degrees watching TV. States, "I breathing just a little bit better today." Loose dry cough when turning for hospitalist lung exam. Slept better last night; awakened when nurse checked vitals but returned to sleep easily. Notes wheezing w/ relief per nebs. Appetite is fair; "I usually don't eat much for long time now." Denies f/c, sweats, headache, chest pain, hemoptysis, abdominal pain, N/V, myalgias, arthralgias, or new symptoms. 09:40 AM Patient denies pain, N/V, or other new complaints. Assessment unchanged from early AM assessment. Objective: Vitals: T=97.6 F, P=53, R=16, BP=83/54, SPO2=98 HEENT: Eyes-no redness, swelling or d/c. No icterus. Slightly [place] w/o hearing aids. Pharynx: w/o injection, cobblestoning, lesions or PND. No dysphagia. Neck: Supple; NT; No lymphadenopathy Lungs: Coarse breath sounds throughout. No crackles, or wheezing noted. Harsh [employer] cough on exam. No retractions. Respirations easy and regular at rest w/ some mild COBOS when turning in bed. O2 2L/NC w/sat 98%. CVS: RRR; No murmurs or gallops. PPP 2+/4+ and =. No edema. No cyanosis; NBBB. Abdomen: Soft, NT, no rebound tenderness or guarding, no organomegaly or masses. DWIGHT/SO present. Extremities: CHILDRESS well w/ symmetry. Turns self in bed w/o difficulty. No edema. No muscular tenderness, erythema, or abnormalities X4 extremities. Ambulates w/ steady gait. Neurological: A/O X4. Cooperative and pleasant. Good eye contact. No tremors noted. Normal gait. Speech clear. Skin: Dry & intact. No rashes or lesions noted. Laboratory Results - last 24 hr 05/26/19 05/26/19 05/26/19 04:00 04:00 07:33 WBC 15.78 H RBC 4.01 L Hgb 12.1 L Hct 37.0 L MCV 92.3 MCH 30.2 MCHC 32.7 RDW Coeff of Nancy 13.2 Plt Count 176 Immature Gran % (Auto) 0.7 Neut % (Auto) 88.6 H Lymph % (Auto) 7.7 L Maries % (Auto) 2.9 Eos % (Auto) 0.0 Baso % (Auto) 0.1 Immature Gran # (Auto) 0.1 Neut # (Auto) 14.0 H Lymph # (Auto) 1.2 Maries # (Auto) 0.5 Eos # (Auto) 0.0 Baso # (Auto) 0.0 Sodium 139.8 Potassium 4.43 Chloride 107.7 H Carbon Dioxide 26.8 Anion Gap 9.73 BUN 16.5 Creatinine 0.75 Estimated GFR (MDRD) 104.00 BUN/Creatinine Ratio 22.00 Glucose 159.0 H Lactic Acid 1.61 Calcium 8.44 Total Bilirubin 0.18 L AST 120.3 H D ALT 126.2 H D Alkaline Phosphatase 86.8 Total Protein 5.76 L Albumin 3.00 L Globulin 2.76 Albumin/Globulin Ratio 1.08 (1) Pneumonia: Status: Acute Code(s): J18.9 - Pneumonia, unspecified organism SNOMED Code(s): 089481186 (2) COPD exacerbation: Status: Acute Code(s): J44.1 - Chronic obstructive pulmonary disease with (acute) exacerbation SNOMED Code(s): 450362725 (3) Hyperglycemia, drug-induced: Status: Acute Code(s): R73.9 - Hyperglycemia, unspecified; T50.905A - Adverse effect of unspecified drugs, medicaments and biological substances, initial encounter SNOMED Code(s): 102930744 (4) Hypertension: Status: Acute Code(s): I10 - Essential (primary) hypertension SNOMED Code(s): 20659788 (5) Hyperlipidemia: Status: Acute Code(s): E78.5 - Hyperlipidemia, unspecified SNOMED Code(s): 51068688 (6) CAD (coronary artery disease): Status: Acute Code(s): I25.10 - Atherosclerotic heart disease of [place] coronary artery without angina pectoris SNOMED Code(s): 91023691 (7) Tobacco abuse: Status: Acute Code(s): Z72.0 - Tobacco use SNOMED Code(s): 87522291 (8) Tobacco abuse counseling: Status: Acute Code(s): Z71.6 - Tobacco abuse counseling SNOMED Code(s): 075404457 (9) Transaminitis: Status: Acute Code(s): R74.0 - Nonspecific elevation of levels of transaminase and lactic acid dehydrogenase [LDH] SNOMED Code(s): 148551428 Plan: Pneumonia--New onset w/ exacerbation of COPD w/ slower than expected improvement, newly noted transaminitis, but chest tightness is improved. AM Labs note some improvement w/ WBC elevated 15.78 likely steroid tx; other CBC abn H/H 12.1/37.0 w/ IVF hydration, Neut% up 88.6H, Lymph% 7.7L, Neut# up 14.0H; CMP abnormals fasting glucose decreased 159 d/t steroids, CL 107.7H, and elevation liver Tot. Bili 0.18L AST 120.3H and ALT 126.2 H.-D/c Levaquin d/t LFT's w/ change to Zithromax 500mg PO BID (total of 3 day tx) and Ceftriaxone 1 GM IV Q 24 hrs; O2 per protocol; Con't Nebulizer therapy Pulmicort neb Q 12 hrs; Change Duonebs to Ipratropium Q 6 hrs.and Albuterol Q 4hrs HAROLDO; Bolus 500ml IVF NS 0.9% as BP83/54 and then resume 100ml/hr.; Lactic Acid check is normal 1.61; VS Q 4hrs & prn; Tylenol prn fever; Needs staff encouragement and assistance to Increase activity--up in chair for all meals and to BRP w/ assistance & always w/ O2 use; I&O; monitor labs & obs frequent checks; notify [employer] Hospitalist if any concerns; Monitor VS and labs; if no complications in hospitalization, will need Pneumovax 23 prior to discharge. 09:35AM Dr. Elizabeth Saravia called and notes abnormal R hemidiaphragm area w/ repeat CXR or CT abd/pelvis noted. Due to transaminitis and recent concentrated bile like urine will do CT scan w/ Jose F, radiology dept. notified. Patient notified of CXR results and CT orders/ w/ explanations; no questions. Patient verbalizes understanding and agrees w/ plan of care. Exacerbation of COPD--New onset w/ moderately severe presentation starting to respond to nebs and steroids; Continue IV methylprednisone 80mg IVP Q 8 hrs; Albuterol neb Q 2hrs prn wheezing/dyspnea; see PNA plan. Transaminitis--likely drug induced. Currently no N/V, icterus, abdominal pain or TTT; Stop Lovenox and Levaquin. Start home plavix; Start milder antibiotics s ee PNA; Monitor LFT's. Check Lactic Acid.; monitor VS and patient status. Hyperglycemia Drug Induced --Steroid tx--glucose cont'd moderate elevations needs watching and SSI controlling at present.AM fasting glucose 159; Continues AC&HS FS w/ SSI as needed. HTN--periods of Hypotension asymptomatic BP 83/54; Currently boluse 500ml NS IV w/ IV fluids then cont'd 100ml/hr. Lactic acid returned normal; Hold home meds SBP 90 or less; monitor VS. HLD--Stable; con't home meds. Heart healthy diet. CAD w/ hx [place] & Stent placement 04/03/2016--stable at present but bears watching w/ respiratory issues; con't home meds; monitor VS & labs; Heart healthy diet. Tobacco Abuse w/ Counseling--Improving and tolerating Nicotine patch well 1 day at a time. Patient continues to verbalize understanding and agrees w/ plan of care/cessation. VTE Prophylaxis--No signs of DVT on admission or at present--Con't w/ observation for DVT symptoms; Lovenox d/c'd w/ transaminitis; Resume patient home Plavix therapy (Hx CABG w/ no thrombosis hx); NIKKI's ordered; Encourage, encourage ambulation as tolerated w/ his respiratory issues/dyspnea.
[2019-05-26] MEDS: ZITHROMAX PO SCH (08:33)
[2019-05-26] MEDS: ROCEPHIN 1 GM/50 ML D5W 1 GM/50 ML BAG IV SCH (08:33)
[2019-05-26] MEDS: ASPIRIN EC PO SCH (08:33)
[2019-05-26] MEDS: NICODERM 14 MG TD SCH (08:34)
[2019-05-26] MEDS: COREG PO SCH ×2 (08:34→17:26)
[2019-05-26] MEDS: ZESTRIL PO SCH (08:34)
--- NOTE | 2019-05-26 09:33 | DI ---
EXAM: Chest two views HISTORY: Pneumonia, hypoxia COMPARISON: 05/24/2019 TECHNIQUE: Two views of the chest were performed FINDINGS: Several pulmonary nodules. Mild interstitial prominence left lung base. Opacity left mid lung seen on CT is not clearly delineated on current radiograph. No large pleural effusion. No vis ible pneumothorax. Lungs are hyperinflated. Lucency under the right hemidiaphragm is likely artifac tual, not seen on the lateral view. IMPRESSION: 1. Lucency under right hemidiaphragm is most likely artifactual, not seen on the lateral view. Nicho mmend repeat PA and lateral chest radiographs and/or CT abdomen pelvis to exclude free air. 2. Mild interstitial prominence left lung base, could be infectious/inflammatory. 3. Pulmonary nodules better seen on CT chest. Opacity left mid lung seen on CT is not clearly deline ated on current radiograph. CT follow-up recommended . Finding #1 called to patient nurse 9:23 a.m. 05/26/2019
--- NOTE | 2019-05-26 10:45 | CT ---
EXAM: CT chest without contrast HISTORY: Suspicion of free air COMPARISON: Radiograph chest same day TECHNIQUE: CT chest performed without intravenous contrast. Coronal and sagittal reformatted images obtained. FINDINGS: Left basilar ground-glass nodularity. No free air. No acute abnormalities of the bones. Degenerative change in the spine. Bilateral pars defects L4 and L5. No anterolisthesis. Heart nor mal in size. Evaluation organ parenchyma limited without contrast. Sub centimeter hypodensity in th e liver, too small to characterize. Gallbladder decompressed. No gallstones identified. Pancreas u nremarkable. Spleen unremarkable. Adrenals unremarkable. Nonspecific bilateral perinephric strandi ng. Right renal cyst measures 2.8 cm. No calculi visualized in the normal course of the ureters. B ladder unremarkable. Prostate normal in size. Small bilateral fat containing inguinal hernias. Aor ta normal in caliber. Moderate atherosclerosis. Stomach unremarkable. No dilated loops small bowel . Appendix appears normal. Colonic diverticulosis. IMPRESSION: 1. No free air. 2. No bowel or urinary obstruction. Normal appendix. 3. Nonspecific bilateral perinephric stranding, may reflect senescent change. 4. Colonic diverticulosis. 5. Atherosclerosis. 6. Mild left basilar ground-glass may infectious/inflammatory
[2019-05-26] MEDS: ATROVENT 0.02% NEB NEB SCH ×3 (10:57→22:30)
[2019-05-26] MEDS: ALBUTEROL 0.083% NEB NEB SCH ×4 (10:58→22:30)
--- NOTE | 2019-05-26 11:06 | PCM.PROG ---
Patient has slowly improving SOB w/ hypoxia w/ repeat 2V CXR ordered. Dr. Jamal Arauz, radiologist called report as printed below and w/ noted Transaminitis new onset will do CT abd/pelvis w/o contrast. 05/25/3029 CXR PA&Lateral FINDINGS: Several pulmonary nodules. Mild interstitial prominence left lung base. Opacity left mid lung seen on CT is not clearly delineated on current radiograph. No large pleural effusion. No visible pneumothorax. Lungs are hyperinflated. Lucency under the right hemidiaphragm is likely artifactual, not seen on the lateral view. IMPRESSION: 1. Lucency under right hemidiaphragm is most likely artifactual, not seen on the lateral view. Recommend repeat PA and lateral chest radiographs and/or CT abdomen pelvis to exclude free air. 2. Mild interstitial prominence left lung base, could be infectious/inflammatory. 3. Pulmonary nodules better seen on CT chest. Opacity left mid lung seen on CT is not clearly delineated on current radiograph. CT follow-up recommended . 10:55PM Note findings of CT Abd/Pelvis w/o contrast: FINDINGS: Left basilar ground-glass nodularity. No free air. No acute abnormalities of the bones. Degenerative change in the spine. Bilateral pars defects L4 and L5. No anterolisthesis. Heart normal in size. Evaluation organ parenchyma limited without contrast. Sub centimeter hypodensity in the liver, too small to characterize. Gallbladder decompressed. No gallstones identified. Pancreas unremarkable. Spleen unremarkable. Adrenals unremarkable. Nonspecific bilateral perinephric stranding. Right renal cyst measures 2.8 cm. No calculi visualized in the normal course of the ureters. Bladder unremarkable. Prostate normal in size. Small bilateral fat containing inguinal hernias. Aorta normal in caliber. Moderate atherosclerosis. Stomach unremarkable. No dilated loops small bowel. Appendix appears normal. Colonic diverticulosis. IMPRESSION: 1. No free air. 2. No bowel or urinary obstruction. Normal appendix. 3. Nonspecific bilateral perinephric stranding, may reflect senescent change. 4. Colonic diverticulosis. 5. Atherosclerosis. 6. Mild left basilar ground-glass may infectious/inflammatory Results of testing discussed w/ patient Silvia RAPP---Patient will need f-u w/ PCP for previous pulmonary nodules. Unk hypodensity in the liver could be concerning. Will recheck LFT's 5PM w/ results to be called to Bogdan Velasco NP Hospitalist assuming OC status and working this week. LFT's hopefully will improve w/ medication changes this AM; will bolus w/ 500ml NS mid-afternoon as patient continues to not drinking many fluids except coffee which is limited to 2 cups per day at present. Critical Care Time 45 minutes re: Transaminitis; slow improving SOB/PNA/COPD; nursing huddles, Radiology dept, ER Dr. Foster admitting MD to inpatient Obs, Lab and patient education.
[2019-05-26] MEDS: LIPITOR PO SCH (20:43)
[2019-05-26] MEDS ORDERED: PLAVIX PO SCH (21:00)
[2019-05-27] MEDS: ALBUTEROL 0.083% NEB NEB SCH ×4 (01:25→14:10)
[2019-05-27] MEDS: PULMICORT 0.5 MG/2 ML NEB SCH (04:48)
[2019-05-27] MEDS: ATROVENT 0.02% NEB NEB SCH (04:48)
[2019-05-27 05:00] LABS: HEMATOCRIT 33.8 % (42.0-52.0)
[2019-05-27] MEDS: SODIUM CHLORIDE 1,000 ML IV SCH ×3 (05:03→06:11)
[2019-05-27] MEDS: SOLU-MEDROL 125 MG IVP SCH (05:32)
[2019-05-27] MEDS: HUMULIN R SUBCUT PRN ×2 (06:12→13:07)
[2019-05-27] MEDS: NICODERM 14 MG TD SCH (08:43)
[2019-05-27] MEDS: ZITHROMAX PO SCH (08:43)
[2019-05-27] MEDS: ROCEPHIN 1 GM/50 ML D5W 1 GM/50 ML BAG IV SCH (08:43)
[2019-05-27] MEDS: ZESTRIL PO SCH (08:43)
[2019-05-27] MEDS: ASPIRIN EC PO SCH (08:43)
[2019-05-27] MEDS: COREG PO SCH (08:43)
[2019-05-27 09:48] VITALS: TEMP 97.6
[2019-05-27] MEDS ORDERED: ATROVENT 0.02% NEB NEB SCH (11:00)
[2019-05-27] MEDS ORDERED: SOLU-MEDROL 40 MG IVP SCH (13:00)
[2019-05-27] MEDS ORDERED: SOLU-MEDROL 125 MG IVP SCH (13:00)
[2019-05-27] MEDS ORDERED: ALBUTEROL 0.083% NEB NEB PRN (13:39)
[2019-05-27] MEDS ORDERED: PROAIR HFA (SINGLE PATIENT USE) IH PRN (13:39)
[2019-05-27] MEDS ORDERED: ATROVENT 0.02% NEB NEB PRN (13:48)
[2019-05-27 14:18] VITALS: BP 131/78
[2019-05-27] MEDS ORDERED: PNEUMOVAX 23 IM ONE (14:30)
--- NOTE | 2019-05-27 16:38 | PCM.DC ---
Final Diagnosis: primary: pnuemonia, community acquired, acute acute COPD exarcerbation acute on chronic COPD hypoxia, now requiring continuous oxygen therapy transaminitis secondary: HTN hyperlipidemia CAD w/prev stenting tobacco dependence (1) Pneumonia: Status: Acute Code(s): J18.9 - Pneumonia, unspecified organism SNOMED Code(s): 034874427 Qualifiers: Laterality: left Lung location: unspecified part of lung Pneumonia type: due to unspecified organism Qualified Code(s): J18.9 - Pneumonia, unspecified organism (2) COPD exacerbation: Status: Acute Code(s): J44.1 - Chronic obstructive pulmonary disease with (acute) exacerbation SNOMED Code(s): 405097242 (3) Hyperglycemia, drug-induced: Status: Acute Code(s): R73.9 - Hyperglycemia, unspecified; T50.905A - Adverse effect of unspecified drugs, medicaments and biological substances, initial encounter SNOMED Code(s): 452131601 (4) Hypertension: Status: Acute Code(s): I10 - Essential (primary) hypertension SNOMED Code(s): 81566844 Qualifiers: Hypertension type: essential hypertension Qualified Code(s): I10 - Essential (primary) hypertension (5) Hyperlipidemia: Status: Acute Code(s): E78.5 - Hyperlipidemia, unspecified SNOMED Code(s): 01255605 Qualifiers: Hyperlipidemia type: unspecified Qualified Code(s): E78.5 - Hyperlipidemia, unspecified (6) CAD (coronary artery disease): Status: Acute Code(s): I25.10 - Atherosclerotic heart disease of [place] coronary artery without angina pectoris SNOMED Code(s): 83676588 Qualifiers: Coronary Disease-Associated Artery/Lesion type: unspecified vessel or lesion type [place] vs. transplanted heart: [place] heart Associated angina: without angina Qualified Code(s): I25.10 - Atherosclerotic heart disease of [place] coronary artery without angina pectoris (7) Tobacco abuse: Status: Acute Code(s): Z72.0 - Tobacco use SNOMED Code(s): 22799862 (8) Tobacco abuse counseling: Status: Acute Code(s): Z71.6 - Tobacco abuse counseling SNOMED Code(s): 949240454 (9) Transaminitis: Status: Acute Code(s): R74.0 - Nonspecific elevation of levels of transaminase and lactic acid dehydrogenase [LDH] SNOMED Code(s): 655304819 Reason for Hospitalization: COPD with worsening dyspnea Prognosis at Discharge: good for recovery with chronic disease Condition at Discharge: hemodynamically stable Medications at Discharge: Ambulatory Orders Medication Instructions Recorded albuterol sulfate 1 vial NEB DIRECTED PRN 04/03/16 albuterol sulfate [ProAir HFA] 2 puff INHALATION DIRECTED PRN 04/03/16 Trelegy Ellipta 1 inh INHALATION DAILY 05/24/19 aspirin 81 mg PO DAILY 05/24/19 atorvastatin 40 mg PO 209905/24/19 carvedilol 6.25 mg PO BID 05/24/19 clopidogrel 75 mg PO 209905/24/19 lisinopril 10 mg PO DAILY 05/24/19 azithromycin 500 mg PO DAILY #12 tab 05/27/19 azithromycin 500 mg PO DAILY #6 tab 05/27/19 cefuroxime axetil 500 mg PO DAILY #12 tab 05/27/19 ipratropium bromide 2.5 ml NEB RTQ6H PRN #25 ml 05/27/19 nicotine 1 patch TRANSDERMAL DAILY #14 ea 05/27/19 prednisone 20 mg PO DAILYWM #12 tab 05/27/19 Follow-ups: PCP in one week needs f/u CT scan and/or CXR to reassess known pulmonary nodules Discharge Disposition: Home Hospital Course: Pt admitted with complaint of worsening dyspnea with non productive cough with hx COPD and CAD w/previous stenting on plavix x 3 years. Please see full N&P for details Pt admitted and treated with duonebs, oxygen, pulmicort, solumedrol, and antibiotics. All but the pulmicort were started in emergency. Pt started on pulmicort when coming to the floor. His solumedrol dose was reduced, and his antibiotics were changed to azithromycin and ceftriaxone. Pt was noted to have leukocytosis with steriods but remained afebrile. Pt noted to have hyperglycemia with steroids. Pt states he is not diabetic. He didn't require any sliding scale insulin therapy. Pt previously on anora and most recently on trelegy but states his co-pay became to great for his to continue to pay. He ran out of the [employer] about 2 - 3 weeks ago and noted that his breathing began to suffer after being off the medication. Pt had improvement in his shortness of breath with decreased work of breathing but continued to have some dyspnea on exertion. Pt stated that he is always somewhat dyspneic with activities of daily living at home and he feels his shortness of breath has returned to his baseline. During his stay pt received lovenox for VTE prophylaxis and levofloxacin for pneumonia. pt was noted to have a moderate increase in his ALT and AST. ALT/ALT weren't noted to be 3 x ULN, but, were noted to be significantly increased after the introduction of the lovenox and levofloxacin. These medications were stopped. pt had an appropriate response with reduction in his transaminitis with removal of these mediations. On the discharge his AST 85.9, ALT 120.6, alk phos 76.1. pt has hx HTN but was noted to have some systolic pressures in the 80s. His lisinopril was held. His coreg was continued. He received IV fluid boluses with appropriate response in blood pressure. His systolic pressures remained greater than 100 throughout the remainder of his stay. Pt is tobacco dependent and says he has been reducing the number of cigarettes he smokes daily. He expressed willingness to stop smoking. He used nicotine patches during his stay. Pts other chronic/co-morbid illness remained stable on his home medications. Pt remained afebrile and hemodynamically stable and deemed safe for discharge. Plan: Pts room air stats were less than 88% at rest and dropped significantly with exertion. Pt qualifed for continuous oxygen and his concentrator was delivered prior to discharge. He is instructed to keep at 2 lpm nasal cannula to keep a saturation in the 90s. He has been warned not to smoke with oxygen in place. Pt already has albuterol neb and albuterol inhaler at home. since pt not sure if he can get back on his trelegy, will add ipratropium to his nebulizer treatments at home. He will complete 6 more days of prednisone 20mg daily. He will complete 6 more days of po azithromycin 500mg daily, and ceftin 500mg daily. Pt had no other changes to his home medication regimen. Pt needs to have 3 - [address] scan of the chest to re-assess previously known pulmonary nodules. Pt could benefit from PFTs as he states he never had this to diagnose his COPD. He is advised to continue the nicotine patches. Not to smoke with the patches on. Discharge time: greater than 30 mins; educating pt on oxygen use, changes to his medications, completing antibiotics, and preparing paperwork.
[2019-05-28] MEDS ORDERED: PREDNISONE PO SCH (08:00)
[2019-05-28] MEDS ORDERED: ZITHROMAX PO SCH (09:00)
[2019-05-28] MEDS ORDERED: FLUTICASONE UMECLIDIN VILANTER IH SCH (09:00)
[2019-05-28] MEDS ORDERED: CEFTIN PO SCH (09:00)
== END 2019-05-27 15:19 | disposition home or self-care (01) ==
LOC: ED 09:26 → MEDSURG B 09:26
PROVIDERS: ADMIT Nurse Practitioner Family; ATTEND Nurse Practitioner Family
DX: J43.9 Emphysema, unspecified; I25.10 Atherosclerotic heart disease of native coronary artery without angina pectoris; Z71.6 Tobacco abuse counseling; R06.02 Shortness of breath; M17.0 Bilateral primary osteoarthritis of knee; Z79.899 Other long term (current) drug therapy; F17.210 Nicotine dependence, cigarettes, uncomplicated; R09.02 Hypoxemia; J44.0 Chronic obstructive pulmonary disease with (acute) lower respiratory infection; R74.0 Nonspecific elevation of levels of transaminase and lactic acid dehydrogenase [LDH]; E78.5 Hyperlipidemia, unspecified; I25.2 Old myocardial infarction; T50.905A Adverse effect of unspecified drugs, medicaments and biological substances, initial encounter; I10 Essential (primary) hypertension; R73.9 Hyperglycemia, unspecified; Z95.5 Presence of coronary angioplasty implant and graft; J18.9 Pneumonia, unspecified organism; D72.829 Elevated white blood cell count, unspecified